=== PATIENT | male | born 1995 | race Caucasian/White ===

== ENCOUNTER 2023-06-24 20:38 | Emergency (ER) | payer BC ==
[2023-06-24 21:22] VITALS: TEMP 98
--- NOTE | 2023-06-24 21:24 | ED ---
General Adult HPI - General Chief complaint: Urogenital Stated complaint: Testicular Pain Time Seen by Provider: 06/24/23 21:23 Source: patient Mode of arrival: ambulatory - History of Present Illness Initial comments: 28-year-old male presenting with chief complaint of left testicular pain. Pain started about 3 days ago. The pain travels from the right and left testicle. No swelling or redness. No dysuria or discharge. No rash. He does have some suprapubic pressure. Pain is worse when he sits. No injury or trauma. - Related Data Allergies Allergy/AdvReac Type Severity Reaction Status Date / Time No Known Allergies Allergy Verified 06/24/23 21:18 Review of Systems ROS Statement: Those systems with pertinent positive or pertinent negative responses have been documented in the HPI. ROS Other: All systems not noted in ROS Statement are negative. Past Medical History Past Medical History: No Reported History History of Any Multi-Drug Resistant Organisms: None Reported Past Surgical History: Adenoidectomy, Orthopedic Surgery, Tonsillectomy Past Psychological History: No Psychological Hx Reported Smoking Status: Never smoker Past Alcohol Use History: Occasional Past Drug Use History: None Reported General Exam - General Exam Comments Initial Comments: Visual Physical Exam Vital signs reviewed General: Well-appearing, nontoxic, no acute distress. Head: Normocephalic, atraumatic Eyes: PERRLA, EOMI ENT: Airway patent Chest: Nonlabored breathing Skin: No visual rash, normal skin tone Neuro: Alert and oriented 3 Musculoskeletal: No gross abnormalities Limitations: no limitations General appearance: alert, in no apparent distress Head exam: Present: atraumatic, normocephalic, normal inspection Eye exam: Present: normal appearance, EOMI Neck exam: Present: normal inspection, full ROM Respiratory exam: Absent: respiratory distress exam: Present: normal inspection, testicular tenderness (Mild). Absent: scrotal swelling Neurological exam: Present: alert, oriented X3 Psychiatric exam: Present: normal affect, normal mood Skin exam: Present: warm, dry, intact, normal color. Absent: rash Course Vital Signs 06/24/23 06/25/23 21:14 00:40 Temperature 98 F 98 F Pulse Rate 50 L 56 L Respiratory 18 17 Rate Blood Pressure 148/91 138/58 O2 Sat by Pulse 98 99 Oximetry Medical Decision Making - Medical Decision Making Was pt. sent in by a medical professional or institution (Dr., PA, [employer] DIRECTOR, urgent care, hospital, or half-way...) When possible be specific @ -No Did you speak to anyone other than the patient for history (EMS, parent, family, police, friend...)? What history was obtained from this source @ -No Did you review nursing and triage notes (agree or disagree)? Why? @ -I reviewed and agree with nursing and triage notes Were old charts reviewed (outside hosp., previous admission, EMS record, old EKG, old radiological studies, urgent care reports/EKG's, half-way records)? Report findings @ -No old charts were reviewed Differential Diagnosis (chest pain, altered mental status, abdominal pain women, abdominal pain men, vaginal bleeding, weakness, fever, dyspnea, syncope, headache, dizziness, GI bleed, back pain, seizure, CVA, palpatations, mental health, musculoskeletal)? @ -Differential includes testicular torsion, varicocele, hydrocele, epididymitis or orchitis, this is not an all inclusive list EKG interpreted by me (3pts min.). @ -As above X-rays interpreted by me (1pt min.). @ -None done CT interpreted by me (1pt min.). @ -None done U/S interpreted by me (1pt. min.). @ -No sonographic evidence for testicular torsion or epididymoorchitis. Small bilateral varicoceles and trace hydroceles. What testing was considered but not performed or refused? (CT, X-rays, U/S, labs)? Why? @ -None What meds were considered but not given or refused? Why? @ -None Did you discuss the management of the patient with other professionals (professionals i.e. JOSHUA Castañeda, [employer] [facility] DIRECTOR, lab, RT, psych nurse, social media developer, roof truss machine tender, teacher, ground nuclear weapons assembly officer, case packer and sealer)? Give summary @ -No Was smoking cessation discussed for >3mins.? @ -No Was critical care preformed (if so, how long)? @ -No Were there social determinants of health that impacted care today? How? (Homelessness, low income, unemployed, alcoholism, drug addiction, transportation, low edu. Level, literacy, decrease access to med. care, alf, rehab)? @ -No Was there de-escalation of care discussed even if they declined (Discuss DNR or withdrawal of care, Hospice)? DNR status @ -No What co-morbidities impacted this encounter? (DM, HTN, Smoking, COPD, CAD, Cancer, CVA, ARF, Chemo, Hep., AIDS, mental health diagnosis, sleep apnea, morbid obesity)? @ -None Was patient admitted / discharged? Hospital course, mention meds given and route, prescriptions, significant lab abnormalities, going to OR and other pertinent info. @ -28-year-old male presenting with chief complaint of testicular pain. No injury or trauma. Physical exam is conducted. Urine shows no infectious processes. Testing for gonorrhea and chlamydia are sent out. Ultrasound shows no torsion or epididymoorchitis. There are bilateral hydroceles varicoceles. Patient is educated on today's findings and supportive management. Follow-up with PCP. Report back to ER with any new or worsening symptoms. Discussed return parameters and answered all questions. Patient conveyed verbal understanding and agreed to the plan. I discussed this case in detail with my attending Dr. Robertson Undiagnosed new problem with uncertain prognosis? @ -No Drug Therapy requiring intensive monitoring for toxicity (Heparin, Nitro, Insulin, Cardizem)? @ -No Were any procedures done? @ -No Diagnosis/symptom? @ -Varicocele, hydrocele Acute, or Chronic, or Acute on Chronic? @ -Acute Uncomplicated (without systemic symptoms) or Complicated (systemic symptoms)? @ -Uncomplicated Side effects of treatment? @ -No Exacerbation, Progression, or Severe Exacerbation? @ -No Poses a threat to life or bodily function? How? (Chest pain, [place], [place], pneumonia, PE, COPD, DKA, ARF, appy, cholecystitis, CVA, Diverticulitis, Homicidal, Suicidal, threat to staff... and all critical care pts) @ -No - Lab Data Lab Results 06/24/23 Range/Units 21:38 Urine Color Yellow Urine Appearance Clear (Clear) Urine pH 5.5 (5.0-8.0) Ur Specific Calvin 1.026 (1.001-1.035) Urine Protein Negative (Negative) Urine Glucose (UA) Negative (Negative) Urine Ketones Negative (Negative) Urine Blood Negative (Negative) Urine Nitrite Negative (Negative) Urine Bilirubin Negative (Negative) Urine Urobilinogen <2.0 (<2.0) mg/dL Ur Leukocyte Esterase Negative (Negative) Disposition Clinical Impression: Varicocele, Hydrocele Disposition: HOME SELF-CARE Condition: Good Instructions (If sedation given, give patient instructions): Hydrocele (ED), Varicocele (ED), Testicle Pain (ED) Additional Instructions: Follow-up with PCP or urology. Report back to ER with any new or worsening symptoms. Is patient prescribed a controlled substance at d/c from ED?: No Referrals: Gutierrez Sebastian MD [Primary Care Provider] - 1-2 days Barak Arias MD [STAFF PHYSICIAN] - 1-2 days Time of Disposition: 00:41
--- NOTE | 2023-06-24 22:06 | US ---
EXAMINATION TYPE: US scrotum with doppler. TECHNIQUE: Grayscale and color Doppler Duplex imaging performed of the scrotum. DATE OF EXAM: 06/24/2023 COMPARISON: NONE CLINICAL INDICATION: Male, 28 years old with history of testicular pain; bilateral testicle pain x 3 days EXAM MEASUREMENTS: TESTICLES: Right Testicle: 5.1 x 3.7 x 2.7 cm Left Testicle: 4.5 x 3.2 x 2.6 cm EPIDIDYMIS HEAD: Right Epididymis: 1.1 cm Left Epididymis: 1.5 cm Doppler performed to assess for testicular vascularity; good bilateral color flow and waveforms are s een. There is no evidence of testicular torsion. Presence of hydroceles: Small bilaterally Presence of varicoceles: Small bilaterally IMPRESSION: 1. No sonographic evidence for testicular torsion or epididymoorchitis. 2. Small bilateral varicoceles and trace hydroceles.
[2023-06-24 23:45] LABS: Appearance,Urine Clear (Clear); Bilirubin,Urine Negative (Negative); Blood,Urine Negative (Negative); Color,Urine Yellow; Glucose,Urine (UA) Negative (Negative); Ketones,Urine Negative (Negative); Leukocyte Esterase,Urine Negative (Negative); Nitrite,Urine Negative (Negative); PH, Urine 5.5 (5.0-8.0); Protein,Urine Negative (Negative); Specific Gravity,Urine 1.026 (1.001-1.035); Urobilinogen,Urine <2.0 mg/dL (<2.0)
[2023-06-25 02:52] VITALS: BP 138/58; PULSE 56; RESP 17
[2023-06-29 15:17] LABS: C. trachomatis,PCR Negative (Negative)
[2023-07-03 16:04] LABS: N. gonorrhoeae,PCR Negative (Negative)
== END 2023-06-25 00:40 | disposition home or self-care (01) ==
LOC: EC 20:38
DX: N43.3 Hydrocele, unspecified (principal); I86.1 Scrotal varices
CPT/HCPCS: 76870; 81003; 87491; 87591; 93975; 99283